=== PATIENT | male | born 1985 | race Caucasian/White ===

== ENCOUNTER 2017-08-26 20:05 | Emergency (ER) | payer OTHER, SELFPAY ==
--- NOTE | 2017-08-26 20:56 | RAD ---
CHEST ONE VIEW 08/26/17 HISTORY: Emergency exam. COMPARISON: None. FINDINGS: Lungs are clear. No pneumothorax or effusion. The cardiac silhouette and mediastinal contours are wit hin normal limits. Old left clavicular fracture. IMPRESSION: No acute intrathoracic abnormality. POS: [facility]
== END 2017-08-26 21:14 | disposition home or self-care (01) ==
LOC: ERS 20:05
DX: R09.1 Pleurisy (principal); F17.210 Nicotine dependence, cigarettes, uncomplicated
CPT/HCPCS: 71045; 93005

== ENCOUNTER 2017-08-29 12:36 | Emergency (ER) | payer SELFPAY | END 2017-08-29 13:34 | disposition home or self-care (01) | LOC: ERS 12:36 | DX: M54.31 Sciatica, right side (principal); F17.210 Nicotine dependence, cigarettes, uncomplicated | CPT/HCPCS: 99283 ==

== ENCOUNTER 2022-04-29 11:15 | Outpatient (CLI) | payer BC ==
[~2022-04-29 11:15] MED LIST: Iopamidol-370 76% 500 ML 1 ML ONE
== END 2022-04-29 11:16 | disposition home or self-care (01) ==
LOC: BICCT 11:15
PROVIDERS: ATTEND Nurse Practitioner Family
DX: Z12.2 Encounter for screening for malignant neoplasm of respiratory organs (principal); F17.210 Nicotine dependence, cigarettes, uncomplicated; R05.9 Cough, unspecified
CPT/HCPCS: 71260; Q9967